=== PATIENT | male | born 1950 | race Hispanic/Latino ===

== ENCOUNTER 2020-01-04 07:37 | Day surgery (SDC) | payer OTHER ==
[2020-01-03 12:16] LABS: EOSINOPHILS % (AUTO) 2.1 % (0.0-8.0); HEMATOCRIT 41.8 % (42-54); LYMPHOCYTES % (AUTO) 35.1 % (21.0-51.0); MEAN CORPUSCULAR HEMOGLOBIN 28.3 pg (27.0-33.0); MEAN CORPUSCULAR VOLUME 85.7 fL (79-99); MONOCYTES % (AUTO) 4.9 % (3.0-13.0); NEUTROPHILS % (AUTO) 56.7 % (40.0-77.0); PLATELET COUNT (AUTO) 167 K/uL (130-400); RED BLOOD CELL COUNT(AUTO) 4.88 MIL/uL (4.50-6.20); RED CELL DISTRIBUTION WIDTH 13.9 % (11.0-15.5); WHITE BLOOD COUNT (AUTO) 4.9 K/uL (4.8-10.8)
[2020-01-03 15:59] VITALS: BP 126/71
[~2020-01-04] VITALS: Ht 175.3 cm; Wt 88.3 kg
[2020-01-04] VITALS (18 sets, daily range): BP systolic 126–155; BP diastolic 67–85
[~2020-01-04 07:37] MED LIST: AEC81 PO; LOVA20TA3 PO; METF-445 PO; TIMO5DRO43 OU
[2020-01-04] MEDS ORDERED: CEFAZOLIN SODIUM 1 GM VIAL IVP ONE (08:00)
[2020-01-04] MEDS ORDERED: SODIUM CHLORIDE 0.9% 1000ML 1,000 ML IV ONE (08:44)
[2020-01-04] MEDS ORDERED: CEFAZOLIN SODIUM 1 GM VIAL ONE (09:12)
[2020-01-04] MEDS ORDERED: ROPIVACAINE 0.5% 5MG/ML 30ML IJ ONE (11:16)
[2020-01-04] MEDS ORDERED: SUCCINYLCHOLINE CHLORIDE 20 MG/ML 10 ML VIAL ONE (11:16)
[2020-01-04] MEDS ORDERED: FENTANYL CITRATE PF 50 MCG/1 ML 2ML VIAL ONE ×2 (11:19→14:37)
[2020-01-04] MEDS ORDERED: ROCURONIUM 10MG/1ML SYR 10 MG/ML ML ONE (11:19)
[2020-01-04] MEDS ORDERED: PROPOFOL 10 MG/ML 20ML VIAL IV ONE (11:19)
[2020-01-04] MEDS ORDERED: LIDOCAINE PF 2% 5ML ABBOJECT ONE (11:19)
[2020-01-04] MEDS ORDERED: EPINEPHRINE 1 MG/ML 30ML VIAL IJ ONE (12:27)
[2020-01-04] MEDS ORDERED: EPHEDRINE SULFATE 50 MG/ML AMPULE ONE (13:06)
[2020-01-04] MEDS ORDERED: HYDRALAZINE HCL 20 MG/ML VIAL ONE (13:48)
[2020-01-04] MEDS ORDERED: GLYCOPYRROLATE 1 MG/5 ML SYRINGE ONE (14:27)
[2020-01-04] MEDS ORDERED: NEOSTIGMINE 5MG/5ML SYR IV ONE (14:27)
[2020-01-04] MEDS ORDERED: KETOROLAC TROMETHAMINE 30MG/ML ONE (14:30)
[2020-01-04] MEDS ORDERED: HYDR-4457 PO (14:36)
[2020-01-04] MEDS ORDERED: NAPR-1023 PO (14:36)
[2020-01-04] MEDS ORDERED: CEPH500B PO (14:36)
[2020-01-04] MEDS ORDERED: MORPHINE SULFATE 2 MG/ML 1ML SYG ONE (15:13)
[2020-01-04] MEDS ORDERED: MEPERIDINE-PF 25 MG/ML SYG ONE (15:28)
--- NOTE | 2020-01-04 16:00 | NUR ---
PATIENT ARRIVED TO DAY PATIENT VIA STRETCHER BY ALYSA MCKNIGHT. PATIENT AAOX3, RESPIRATIONS UNLABORED, VITAL SIGNS STABLE. DRESSING TO RIGHT SHOULDER X3. DRESSINGS DRY/INTACT, NO DRAINAGE NOTED. ARM SLING IN PLACE.
--- NOTE | 2020-01-04 16:20 | NUR ---
PATIENT C/O PAIN TO RIGHT SHOULDER,RATES PAIN AT 3 OUT OF 10. ICE PACK APPLIED TO RIGHT SHOULDER.
--- NOTE | 2020-01-04 16:40 | NUR ---
DISCHARGE INSTRUCTIONS PROVIDED TO PATIENT'S SISTER (PINKY CARBAJAL) VIA TELEPHONE. FOLLOW UP APPOINTMENT PROVIDED AND HANDOUTS PROVIDED. ALL QUESTIONS/CONCERNS ADDRESSED. PRESCRIPTIONS PROVIDED AND INFORMED HER THAT THE PAIN MEDICATION IS READY TO BE PICKED UP AT [facility] ON [facility].
--- NOTE | 2020-01-04 17:25 | NUR ---
PATIENT DISCHARGED FROM FACILITY VIA WHEELCHAIR BY LISY.PATIENT ASSISTED INTO PRIVATE VEHICLE DRIVEN BY FAMILY.
== END 2020-01-04 17:25 | disposition home or self-care (01) ==
LOC: DAH 07:37
PROVIDERS: ATTEND Orthopaedic Surgery
DX: S46.011A Strain of muscle(s) and tendon(s) of the rotator cuff of right shoulder, initial encounter (principal); M25.811 Other specified joint disorders, right shoulder; M75.41 Impingement syndrome of right shoulder; M75.51 Bursitis of right shoulder; E11.9 Type 2 diabetes mellitus without complications; Z96.651 Presence of right artificial knee joint; E78.5 Hyperlipidemia, unspecified; V29.88XA Motorcycle rider (driver) (passenger) injured in other specified transport accidents, initial encounter; Y93.89 Activity, other specified; Y92.89 Other specified places as the place of occurrence of the external cause; Y99.8 Other external cause status
CPT/HCPCS: 29826; 29827; 36415; 82948 ×2; 85025; A4215; A4221; A4222; A4223; A4565; A4649 ×6; A4663; A4930 ×2; A6204; C1713 ×3; G0168; J0171; J0330; J0360; J0690; J1885; J2001; J2175; J2704; J2710; J2795; J3010 ×2; J3490 ×2; J7030 ×2; 96375

== ENCOUNTER 2024-04-13 08:58 | Day surgery (SDC) | payer OTHER ==
[2024-04-13] VITALS (12 sets, daily range): BP systolic 92–125; BP diastolic 54–87; PULSE 52–61; RESP 15–17
[~2024-04-13] VITALS: Ht 170.2 cm; Wt 83.0 kg
[~2024-04-13 08:58] MED LIST changes: +0.9%NACL 1000ML 1,000 ML IV ONE; +CEPH500B PO; +HYDR-4457 PO; +NAPR-1023 PO
[2024-04-13] MEDS ORDERED: METF-527 PO (09:49)
[2024-04-13] MEDS ORDERED: PROPOFOL 10 MG/ML 20ML VIAL IV ONE (10:12)
[2024-04-13] MEDS ORDERED: PANT40TA54 PO (11:32)
== END 2024-04-13 12:05 | disposition home or self-care (01) ==
LOC: DAH 08:58 → SUH 08:58
PROVIDERS: ATTEND Internal Medicine
DX: Z12.11 Encounter for screening for malignant neoplasm of colon (principal); D12.3 Benign neoplasm of transverse colon; K62.1 Rectal polyp; K57.30 Diverticulosis of large intestine without perforation or abscess without bleeding; K44.9 Diaphragmatic hernia without obstruction or gangrene; K25.9 Gastric ulcer, unspecified as acute or chronic, without hemorrhage or perforation; K29.70 Gastritis, unspecified, without bleeding; R14.0 Abdominal distension (gaseous); K59.89 Other specified functional intestinal disorders; E78.5 Hyperlipidemia, unspecified; E11.9 Type 2 diabetes mellitus without complications; Z79.82 Long term (current) use of aspirin; Z79.84 Long term (current) use of oral hypoglycemic drugs; Z79.899 Other long term (current) drug therapy
CPT/HCPCS: 45385; 43239; 82948 ×2; J7030; J2704; A4620; A4215 ×2; A4223; A4222; A4221; A4663; A4606; J3490

== ENCOUNTER 2025-01-31 12:36 | Emergency (ER) | payer OTHER ==
[~2025-01-31] VITALS: Ht 172.7 cm; Wt 83.0 kg
[~2025-01-31 12:36] MED LIST changes: -0.9%NACL 1000ML 1,000 ML IV ONE; +APIX5TAB PO; +CELE-146 PO; -CEPH500B PO; +GLIP10TA16 PO; -HYDR-4457 PO; -METF-445 PO; +METF-527 PO; +MONT-39 PO; -NAPR-1023 PO; +PANT40TA54 PO; +TIMO1DRO9 OP; -TIMO5DRO43 OU
[2025-01-31 12:56] VITALS: BP 140/79; PULSE 64; RESP 20; TEMP 96.9
--- NOTE | 2025-01-31 13:18 | NUR ---
PT LEFT AFTER TRIAGE. LEFT WITH OUT SEEING THE ER PROVIDER. PT CAME UP TO TRIAGE WINDOW AND STATED HE WAS ABLE TO SET UP AN APPOINTMENT WITH PCP TODAY. DID NOT WANT TO WAIT. PT SEEN WALKING OUT ER LOBBY. AMBULATING WITHOUT ASSISTANCE.
== END 2025-01-31 13:54 | disposition left against medical advice (07) ==
LOC: EDH 12:36
DX: M25.561 Pain in right knee (principal); M25.571 Pain in right ankle and joints of right foot; Z53.21 Procedure and treatment not carried out due to patient leaving prior to being seen by health care provider

== ENCOUNTER 2025-03-22 12:52 | Emergency (ER) | payer OTHER ==
[~2025-03-22] VITALS: Ht 172.7 cm; Wt 78.5 kg
--- NOTE | 2025-03-22 13:03 | ERN ---
ED Note History of Present Illness Stated Complaint: RUQ PAIN, RIGHT LEG PAIN Chief Complaint: Abdominal Pain Time Seen by MD: 12:56 Dictation: PATIENT IS A 75-YEAR-OLD MALE COMING IN WITH TWO COMPLAINTS 1ST COMPLAINT IS HE IS HAVING RIGHT LEG PAIN SWELLING TO HIS CALF HE HAS HAD FOR SEVERAL WEEKS. HE HAS ALREADY BEEN SEEN AT [facility] IN THE PAST DIAGNOSED WITH CHRONIC LEG PAIN THERE WAS NO DVT. HE WAS PLACED ON GABAPENTIN AND STATES THAT IS NOT HELPING THE PAIN. SECOND COMPLAINT IS HE IS HAVING RIGHT UPPER QUADRANT AND RIGHT LATERAL CHEST PAIN FOR THE LAST SEVERAL WEEKS ALSO, NO NAUSEA VOMITING NO BACK PAIN NO JAW PAIN NO ARM PAIN. STATES HE HAS BEEN SEEN BY HIS PRIMARY CARE DOCTOR IN [facility] WHO PRESCRIBED HIM TYLENOL NO. 3 HOWEVER SHE CAN NOT FIND WHAT THE ANSWER HIS FOR THE ETIOLOGY OF HIS PAIN. Allergies: Coded Allergies: No Known Drug Allergies (Unverified Allergy, Unknown, 03/11/16) Home Meds Active Scripts Apixaban (Eliquis) 5 Mg Tablet, 5 MG PO BID, #60 TAB 1 Refill Take Eliquis5 mg p.o. b.i.d. on the 2nd week after completing Eliquis 10 mg p.o. b.i.d. for seven days Prov:ELA TOVAR [facility] 01/28/25 Apixaban (Eliquis) 5 Mg Tablet, 2 TAB PO BID for 7 Days, #14 TAB 0 Refills Prov:ELA TOVAR [facility] 01/28/25 Reported Medications Timolol Maleate/Pf (Timolol Maleate 0.5% Eye Drop) 0.5 % Droperette, 1 EACH OP BID, DROP 01/26/25 Montelukast Sodium (Montelukast Sodium) 10 Mg Tablet, 1 TAB PO DAILY for 30 Days, #30 TAB 0 Refills 01/26/25 Glipizide (Glipizide) 10 Mg Tablet, 10 MG PO DAILYDINNER, TAB 01/26/25 Celecoxib (Celecoxib) 100 Mg Capsule, 100 MG PO DAILYDINNER, CAP 01/26/25 Pantoprazole Sodium (Pantoprazole Sodium) 40 Mg Tablet.dr, 40 MG PO AM, TAB 04/13/24 Metformin HCl (Metformin HCl ER) 1,000 Mg Tab.er.24, 1000 MG PO AM 04/13/24 Aspirin (ASPIRIN 81 MG ECTAB) 81 Mg Ectab, 81 MG PO DAILY, TAB.EC 01/03/20 Lovastatin (Lovastatin) 20 Mg Tablet, 20 MG PO DAILY, TAB 03/11/16 Past Medical History Past Medical History: Diabetes-Type II, DVT Surgical History: Other Surgical History Other: RIGHT ANKLE, KNEE REPLACEMENT RN Note Reviewed/Agreed w/PFSH: Yes Review of System Dictation CONSTITUTIONAL: NEGATIVE EXCEPT FOR HPI HEAD/FACE: NEGATIVE EXCEPT FOR HPI EENT: NEGATIVE EXCEPT FOR HPI RESPIRATORY: NEGATIVE EXCEPT FOR HPI RIGHT LATERAL CHEST PAIN GASTROINTESTINAL/ABDOMINAL: NEGATIVE EXCEPT FOR HPI RIGHT UPPER QUADRANT PAIN GENITOURINARY: NEGATIVE EXCEPT FOR HPI MUSCULOSKELETAL: NEGATIVE EXCEPT FOR HPI RIGHT LEG PAIN FROM KNEE DOWN WITH CALF SWELLING INTEGUMENTARY: NEGATIVE EXCEPT FOR HPI NEUROLOGICAL/PSYCH: NEGATIVE EXCEPT FOR HPI HEMATOLOGIC/LYMPHATIC: NEGATIVE EXCEPT FOR HPI ALL SYSTEMS NEGATIVE, EXCEPT NOTED ABOVE. 13 POINT REVIEW OF SYSTEMS ASSESSED AND ALL NEGATIVE EXCEPT FOR ABOVE. Initial Vital Sign VS Vital Signs Date Time Temp Pulse Resp B/P (MAP) Pulse Ox O2 Delivery O2 Flow Rate FiO2 03/22/25 12:55 98.8 87 16 134/65 97 Room Air Physical Exam Dictation VITAL SIGNS REVIEWED GENERAL APPEARANCE: ALERT, ORIENTED X 3, MODERATE ACUTE DISTRESS, WELL DEVELOPED, NOURISHED. HEAD AND FACE: NON-TRAUMATIC. EYES: PERRL, PINK CONJUNCTIVAS, EYELID NO TRAUMA, ANTERIOR CHAMBER WITH ARCUS SENILIS. EARS: PINNAS INTACT AND NO SIGNS OF TRAUMA OR ERYTHEMA EAR CANALS CLEAR AND NO DISCHARGE TM NO ERYTHEMA NOSE: NO DISCHARGE, NO BLEEDING. OROPHARYNX: MOUTH NORMAL, TONGUE PINK, PHARYNX CLEAR,NO ERYTHEMA, TONSILS NO EXUDATES, NO ABSCESSES NOTED, MUCOUS MEMBRANE MOIST NECK: SUPPLE, NON-TENDER, NO THYROMEGALY, NO MASSES, NO JVD, NO BRUITS BREAST:DEFERRED CHEST:NO TENDERNESS, NO CREPITUS, NO PARADOXICAL MOVEMENT, NO RETRACTIONS LUNGS:CLEAR, WELL-VENTILATED, SYMMETRIC, NO RALES, NO WHEEZING, NO RHONCHI, NO STRIDOR, GOOD BREATH SOUNDS BILATERALLY BILATERAL BREATH SOUNDS CLEAR HEART: REGULAR RATE, REGULAR RHYTHM, NO MURMUR, NO GALLOPS VASCULAR: NO PERIPHERAL EDEMA, ABDOMEN: SOFT, POSITIVE BOWEL SOUNDS, NONDISTENDED, NO GUARDING, NONTENDER, NO REBOUND, NO MASSES NO HEPATOMEGALY, NO SPLENOMEGALY, NO LAM'S SIGN, NO HERNIAS. RECTAL: DEFERRED GENITAL: DEFERRED NEUROLOGICAL: NORMAL SPEECH, MOTOR FUNCTION INTACT, SENSORY FUNCTION INTACT MUSCULOSKELETAL: NECK NONTENDER, FULL RANGE OF MOTION, BACK NONTENDER, FULL RANGE OF MOTION, EXTREMITIES: , FULL RANGE OF MOTION MILD RIGHT CALF SWELLING TENDERNESS WELL GRANULATED INCISION FROM PRIOR TKR IN PLACE. NO SHORTENING OR ROTATION NO ERYTHEMA. SKIN: COLOR PINK, DRY, NO TURGOR, NO RASH, NO LACERATIONS, NO ABRASIONS, NO CONTUSIONS. LYMPHATIC: DEFERRED Results (Laboratory/Radiology) Laboratory/Radiology Laboratory Tests Test 03/22/25 13:35 White Blood Count 4.9 K/uL (4.8-10.8) Red Blood Count 4.64 MIL/uL (4.50-6.20) Hemoglobin 13.5 g/dL (14.0-18.0) L Hematocrit 39.3 % (42-54) L Mean Corpuscular Volume 84.7 fL (79-99) Mean Corpuscular Hemoglobin 29.1 pg (27.0-33.0) Mean Corpuscular Hemoglobin Concent 34.4 g/dL (32.0-36.0) Red Cell Distribution Width 14.8 % (11.0-15.5) Platelet Count 163 K/uL (130-400) Mean Platelet Volume 8.5 fL (7.5-10.5) Immature Granulocyte % (Auto) 0.2 % (0-1) Neutrophils (%) (Auto) 68.5 % (40.0-77.0) Lymphocytes (%) (Auto) 24.3 % (21.0-51.0) Monocytes (%) (Auto) 5.4 % (3.0-13.0) Eosinophils (%) (Auto) 1.2 % (0.0-8.0) Basophils (%) (Auto) 0.4 % (0.0-5.0) Neutrophils # (Auto) 3.3 K/uL (1.8-7.7) Lymphocytes # (Auto) 1.2 K/uL (1.0-4.8) Monocytes # (Auto) 0.3 K/uL (0.1-1.0) Eosinophils # (Auto) 0.06 K/uL (0.00-0.70) Basophils # (Auto) 0.02 K/uL (0.00-0.20) Absolute Immature Granulocyte (auto 0.01 K/uL (0-1) Nucleated Red Blood Cells 0.0 % (0.0-0.19) Troponin I High Sensitivity 6 ng/L (4-75) Lipase 44 U/L (16-77) EXAM: CR Chest, 1 View. CLINICAL HISTORY: SHORTNESS A BREATH/CHEST PAIN COMPARISON: Radiograph dated March 17, 2025 FINDINGS: Small to moderate left and moderate to large right bilateral effusions. Dependent airspace disease within the mid to lower right lung, and at the left lung base may reflect atelectasis and/or an infectious/inflammatory process. Heart size is stable. Mild central pulmonary vascular congestion. IMPRESSION: 1. Bilateral pleural effusions, moderate to large on the right and small to moderate on the left 2. Right middle and lower lung and left basilar airspace disease, may reflect atelectasis and/or pneumonia 3. Mild pulmonary vascular congestion /[place] Right leg demonstrates DVT to pop to her vein. Unchanged from his last ER visit patient on Eliquis. Right upper upper quadrant sonogram demonstrates no gallbladder disease Labs Reviewed?: Yes EKG Comment: EKG NORMAL SINUS RHYTHM/HEART RATE 82/AXIS NORMAL/NO ECTOPY ED Course ED Course Orders Procedure Category Date Status Time Us Venous Doppler US 03/22/25 Resulted Unilateral 12:59 Cbc With Differential LAB 03/22/25 Complete 12:59 Troponin I High LAB 03/22/25 Complete Sensitivity 12:59 Urinalysis Profile LAB 03/22/25 Logged 12:59 Us Abdominal Ruq\Ltd US 03/22/25 Resulted 12:59 12 Lead Ekg Tracing- EKG 03/22/25 Logged Technical 12:59 Morphine 2mg Syg PHA 03/22/25 Complete (Morphine 2mg Syg) 13:00 Ondansetron 4mg Inj PHA 03/22/25 Complete (Zofran 4mg Inj) 13:00 Chest 1vw RAD 03/22/25 Resulted 12:59 Lipase LAB 03/22/25 Complete 12:59 Basic Metabolic Panel LAB 03/22/25 In Process 14:37 Morphine 4mg Syg PHA 03/22/25 Transmitted (Morphine 4mg Syg) 15:00 Current Medications Medications (Trade) Dose Ordered Sig/Chris Route PRN Reason Start Time Stop Time Status Last Admin Dose Admin Morphine Sulfate (morPHINE 2MG SYG) 2 mg ONCE ONCE IVP 03/22/25 13:00 03/22/25 13:02 DC 03/22/25 13:42 Ondansetron HCl (zoFRAN 4MG INJ) 4 mg ONCE ONCE IVP 03/22/25 13:00 03/22/25 13:02 DC 03/22/25 13:40 Vital Signs Date Time Temp Pulse Resp B/P (MAP) Pulse Ox O2 Delivery O2 Flow Rate FiO2 03/22/25 12:55 98.8 87 16 134/65 97 Room Air 1500/patient will be discharged home with diabetic neuropathy lower extremities he will be given Tylenol No. 3 told to continue gabapentin Follow up with his primary care doctor.1500/ HEART Score Response (Comments) Value EKG: Normal 0 Age: > 65yrs (+2) 2 Risk Factors: 1-2 risk factors (+1) 1 Initial Troponin: Normal limit (0) 0 Total 3 Medical Decision Making MDM MDM: Differential diagnosis: Cholelithiasis/pancreatitis/pulmonary lesion/pneum onia/bronchitis/PE/DVT/diabetic neuropathy/uncontrolled diabetes Rationale: Tests considered and ordered secondary to shared decision making include: EKG/labs/radiology Previous outside records reviewed: Old ER visits. Risk of complication and/or morbidity or mortality of patient management: None Medications-Per medication reconciliation Need for hospitalization: Patient does not meet criteria for hospitalization. No Need for emergency major/minor surgery: No There are no social concerns with this patient. Prescription drug management Tylenol No. 3 Prescriptions will include symptomatic care Patient's prior external medical records from other ER visits were reviewed by me as indicated. Prior testing and results from previous visits were reviewed. Prior tests were taken into account with medical decision making and resource utilization, independent historian/historians were used to obtain complete medical history. I independently interpreted the test that were performed, results were reviewed by me and considered findings on radiology if ordered. Medical management and examination interpretation discussions were had by me with other qualified healthcare professionals as indicated for the patient's care. DX & DISP Disposition: Discharge Departure Impression: Primary Impression: Right leg DVT Additional Impressions: Uncontrolled diabetes mellitus with hyperglycemia, Diabetic neuropathy Condition: Stable Scripts Acetaminophen with Codeine (Acetaminophen-Cod #3 Tablet) 300 Mg-30 Mg Tablet 1 TAB PO Q4H PRN for Moderate to severe pain, #20 TAB 0 Refills Prov: HUONG SHEIKH NP 03/22/25 Additional Instructions: Follow-up with primary care provider in 1 to 2 days. Take medications as directed here in the emergency room. Okay to continue home medications unless otherwise discussed during your visit in the emergency room today. Return to your nearest emergency room if symptoms worsen or if there is no improvement. Call 911 if you need immediate assistance. Take Tylenol or Motrin [id number] as needed and if no contraindications are present. Increase oral hydration. A wound culture or urine culture was ordered here in the emergency room department please follow-up with primary care provider and advise them to get repeat ports from our facility. If you had any Carlos wrap/splints that were applied here, please do not remove them until you see your primary care or specialty. Continue gabapentin from your primary care doctor. Take Tylenol with codeine as needed for severe pain. Follow up with the your doctor for referral to Neurology for diabetic neuropathic pain. Referrals: HUAN GOMEZ (PCP) Time of Disposition: 15:02 I have reviewed the case, and I agree with, Diagnosis and Plan HUONG SHEIKH NP Mar 22, 2025 13:03
--- NOTE | 2025-03-22 13:31 | HMCIMG ---
EXAM: CR Chest, 1 View. CLINICAL HISTORY: RIGHT LATERAL CHEST PAIN COMPARISON: Radiograph dated June 21, 2015 FINDINGS: LUNGS: The lungs show no infiltrate or other acute finding. PLEURAL SPACES: No pleural effusion or pneumothorax. MEDIASTINUM: Cardiac size and mediastinal contours within normal limits. BONES: No aggressive appearing osseous lesion seen. IMPRESSION: No acute cardiopulmonary pathology is evident. /[place]
[2025-03-22 13:42] LABS: IMMATURE GRANULOCYTE ABSOLUTE 0.01 K/uL (0-1); NUCLEATED RED BLOOD CELLS 0.0 % (0.0-0.19); PLATELET COUNT (AUTO) 163 K/uL (130-400); RED BLOOD CELL COUNT(AUTO) 4.64 MIL/uL (4.50-6.20); RED CELL DISTRIBUTION WIDTH 14.8 % (11.0-15.5); WHITE BLOOD COUNT (AUTO) 4.9 K/uL (4.8-10.8)
--- NOTE | 2025-03-22 14:52 | HMCIMG ---
EXAM: US Abdomen, Right Upper Quadrant. CLINICAL HISTORY: Adominal Pain TECHNIQUE: Right upper quadrant sonography performed with image documentation. COMPARISON: None provided. FINDINGS: LIVER: Hepatomegaly; the right hepatic lobe measures up to 18.0 cm in craniocaudal dimension. Increased echogenicity of the hepatic parenchyma reflects hepatic steatosis. GALLBLADDER: The gallbladder appears normal. No gallbladder wall thickening seen. No gallstones are evident. COMMON BILE DUCT: Within normal limits in size. PANCREAS: The pancreas is obscured by overlying bowel gas. RIGHT KIDNEY: Unremarkable. Normal renal contours. No renal mass or calculus. No hydronephrosis. IMPRESSION: 1. Hepatomegaly with hepatic steatosis. /[place]
--- NOTE | 2025-03-22 14:54 | HMCIMG ---
EXAM: US for Deep Venous Thrombosis, right Lower Extremity. CLINICAL HISTORY: Leg Pain and Swelling TECHNIQUE: Real-time ultrasound scan of the veins of the right lower extremity with color Doppler flow, spectral waveform analysis and compression. COMPARISON: Prior ultrasound images dated January 26, 2025 FINDINGS: Partial occlusive thrombus within the right popliteal vein. Remaining right lower extremity veins are patent and compressible. IMPRESSION: 1. Partial occlusive thrombus in the right popliteal vein, unchanged from the prior examination. /[place]
[2025-03-22 14:57] VITALS: BP 137/72; PULSE 82; RESP 18; TEMP 98.3; O2SAT 99
[2025-03-22 15:02] LABS: CREATININE 1.0 mg/dL (0.5-1.3); GLOMERULAR FILTR. RATE CALC 79.0 mL/min (>90); GLUCOSE,RANDOM 188.0 mg/dL (70-105); SODIUM SERUM 142.0 mmol/L (136-145); UREA NITROGEN, BLOOD 21.0 mg/dL (7-18)
[2025-03-22] MEDS ORDERED: ACET-2079 PO (15:02)
--- NOTE | 2025-03-22 15:03 | EKG ---
[facility] Test Date: 2025-03-22 Test Time: 13:05:49 Pat Name: HERMES DENSON Department: [facility] Room: Gender: Clinical Trial Associate: [id number] : 1950 Requested By: HUONG SHEIKH Order Number: [id number] Reading MD: Jus Cho Measurements Intervals [place] Rate: 82 P: 50 ID: [id number] QRS: 43 QRSD: 91 T: 52 QT: 358 QTc: 418 Interpretive Statements Sinus rhythm Compared to ECG 03/11/2016 17:11:38 No significant changes Electronically Signed On 03-22-2025 23:45:12 CDT by Jus Cho Please click the below link to view image of tracing.
== END 2025-03-22 15:41 | disposition home or self-care (01) ==
LOC: EDH 12:52
DX: I82.401 Acute embolism and thrombosis of unspecified deep veins of right lower extremity (principal); E11.65 Type 2 diabetes mellitus with hyperglycemia; E11.40 Type 2 diabetes mellitus with diabetic neuropathy, unspecified; M79.661 Pain in right lower leg; Z79.01 Long term (current) use of anticoagulants; Z79.82 Long term (current) use of aspirin; Z79.899 Other long term (current) drug therapy; Z86.718 Personal history of other venous thrombosis and embolism; Z96.659 Presence of unspecified artificial knee joint
CPT/HCPCS: 99285; 96374; 76705; 93971; 71045; 96375; 84484; 80048; 83690; 85025; 36415; 96376; 93005; J2270 ×2; J2405

== ENCOUNTER → 2025-07-05 | Outpatient (CLI) | payer OTHER ==
[~2025-07-05] MED LIST changes: +ACET-2079 PO
--- NOTE | 2025-07-05 22:47 | HMCIMG ---
EXAM: CR LEFT HUMERUS, 2 VIEW CLINICAL HISTORY: Pain in left arm. COMPARISON: None provided. FINDINGS: BONES: No acute fracture or destructive osseous lesion identified. Prominent deltoid tuberosity noted. Contour irregularities along the greater tuberosity of the humerus, likely representing sequelae of chronic rotator cuff tendinosis. JOINTS: Mild acromioclavicular degenerative arthritic changes with marginal osteophyte formation and joint space narrowing. Glenohumeral alignment maintained. No dislocation. SOFT TISSUES: Soft tissues appear unremarkable. No calcific tendinitis or abnormal soft tissue swelling. IMPRESSION: * Mild acromioclavicular joint degenerative arthritis. * Greater tuberosity contour irregularities, likely related to chronic rotator cuff tendinosis. * Prominent deltoid tuberosity (anatomic variant). * No acute fracture or dislocation. /[place]
--- NOTE | 2025-07-05 22:48 | HMCIMG ---
EXAM: CR Left Shoulder, 2 View. CLINICAL HISTORY: Shoulder impingement. TECHNIQUE: Standard anteroposterior and lateral radiographs of the left shoulder. COMPARISON: No prior available for comparison. FINDINGS: BONES: No acute fracture or aggressive osseous lesion. Cortical irregularity noted along the greater tuberosity suggestive of chronic rotator cuff tendinosis. JOINTS: Mild to moderate degenerative osteoarthritis involving the glenohumeral and acromioclavicular joints with marginal osteophyte formation and mild joint space narrowing. No dislocation. SOFT TISSUES: Soft tissues appear unremarkable. No calcific tendinitis or soft tissue swelling. IMPRESSION: * Mild to moderate degenerative osteoarthritis of the glenohumeral and acromioclavicular joints. * Radiographic evidence of rotator cuff tendinosis with cortical irregularity of the greater tuberosity. * No acute fracture or dislocation. /[place]
== END | disposition home or self-care (01) ==
LOC: RAH 15:27
PROVIDERS: ATTEND Internal Medicine
DX: M19.012 Primary osteoarthritis, left shoulder (principal); M75.42 Impingement syndrome of left shoulder; M25.712 Osteophyte, left shoulder; M67.814 Other specified disorders of tendon, left shoulder; M25.812 Other specified joint disorders, left shoulder; M79.602 Pain in left arm
CPT/HCPCS: 73030; 73060

== ENCOUNTER 2025-08-27 14:08 | Emergency (ER) | payer OTHER ==
[~2025-08-27] VITALS: Ht 170.2 cm; Wt 83.0 kg
[2025-08-27 14:11] VITALS: BP 150/74; PULSE 76; RESP 18; TEMP 98.8
--- NOTE | 2025-08-27 15:34 | HMCIMG ---
EXAM CR right knee, 3 views CLINICAL HISTORY Fall TECHNIQUE Three-view radiographic examination of the right knee COMPARISON None provided FINDINGS Bones No acute fracture, dislocation, or aggressive osseous lesion is identified. Joints There is moderate osteoarthritic change of the right knee with joint space narrowing, marginal osteophyte formation, and subchondral sclerosis, most pronounced in the weightbearing compartments. A moderate knee joint effusion is present. Soft tissues The periarticular soft tissues are otherwise unremarkable without soft tissue gas or focal mass. IMPRESSION * Moderate osteoarthritis of the right knee with associated joint effusion. * No acute fracture or dislocation. /[place]
--- NOTE | 2025-08-27 16:17 | ERN ---
ED Note History of Present Illness Stated Complaint: KNEE PAIN Chief Complaint: Knee Injury/Swelling Time Seen by MD: 14:13 Time Seen by Midlevel: 14:13 Dictation: The patient is a 75-year-old male with a history of diabetes, DVT on Eliquis who presents to the emergency department with complaints of left knee pain. Patient reports that on Thursday his knee gave up on him in causing him to land on his left knee. Patient denies any head trauma or any other injury from the fall. Denies any fevers. Allergies: Coded Allergies: No Known Drug Allergies (Unverified Allergy, Unknown, 03/11/16) Home Meds Active Scripts Acetaminophen with Codeine (Acetaminophen-Cod #3 Tablet) 300 Mg-30 Mg Tablet, 1 TAB PO Q4H PRN for Moderate to severe pain, #20 TAB 0 Refills Prov:[employer] 03/22/25 Apixaban (Eliquis) 5 Mg Tablet, 5 MG PO BID, #60 TAB 1 Refill Take Eliquis5 mg p.o. b.i.d. on the 2nd week after completing Eliquis 10 mg p.o. b.i.d. for seven days Prov:[facility] 01/28/25 Apixaban (Eliquis) 5 Mg Tablet, 2 TAB PO BID for 7 Days, #14 TAB 0 Refills Prov:[facility] 01/28/25 Reported Medications Timolol Maleate/Pf (Timolol Maleate 0.5% Eye Drop) 0.5 % Droperette, 1 EACH OP BID, DROP 01/26/25 Montelukast Sodium (Montelukast Sodium) 10 Mg Tablet, 1 TAB PO DAILY for 30 Days, #30 TAB 0 Refills 01/26/25 Glipizide (Glipizide) 10 Mg Tablet, 10 MG PO DAILYDINNER, TAB 01/26/25 Celecoxib (Celecoxib) 100 Mg Capsule, 100 MG PO DAILYDINNER, CAP 01/26/25 Pantoprazole Sodium (Pantoprazole Sodium) 40 Mg Tablet.dr, 40 MG PO AM, TAB 04/13/24 Metformin HCl (Metformin HCl ER) 1,000 Mg Tab.er.24, 1000 MG PO AM 04/13/24 Aspirin (ASPIRIN 81 MG ECTAB) 81 Mg Ectab, 81 MG PO DAILY, TAB.EC 01/03/20 Lovastatin (Lovastatin) 20 Mg Tablet, 20 MG PO DAILY, TAB 03/11/16 Past Medical History Past Medical History: Arthritis, Diabetes-Type II Surgical History: Other Surgical History Other: RT KNEE REPLACEMENT, RT SHOULDER SX RN Note Reviewed/Agreed w/PFSH: Yes Review of System Dictation Constitutional: Negative for fever,chills, and weight loss Eyes: Negative for injury, pain,redness, and discharge ENT: Negative for injury,pain or swelling Cardiovascular: Negative for chest pain, palpitations, and edema Respiratory: Negative for shortness of breath, cough, and wheezing, Abdomen/GI: Negative for abdominal pain, nausea, vomiting, diarrhea, and constipation Back: Negative for injury and pain : Negative for injury, bleeding and discharge MS/Extremity: Positive for left knee injury Skin: Negative for rash, and discoloration Neuro: Negative for headache, weakness, numbness, tingling, and seizure Psych: Negative for suicide ideation, homicidal ideation, and hallucinations Initial Vital Sign VS Vital Signs Date Time Temp Pulse Resp B/P (MAP) Pulse Ox O2 Delivery O2 Flow Rate FiO2 08/27/25 14:11 98.8 76 18 150/74 97 Nasal Cannula 0 Physical Exam Dictation Vital Signs reviewed General Appearance: Alert, oriented x 3, no acute distress, well developed, nourished. Head and Face: non-traumatic. Eyes: PERRL, pink conjunctivas, eyelid no trauma, anterior chamber with arcus senilis. Ears: Pinnas intact and no signs of trauma or erythema ear canals clear and no discharge TM no erythema Nose: No discharge, no bleeding. Oropharynx: Mouth normal, tongue pink. pharynx clear,no erythema, tonsils no exudates, no abscesses noted, mucous membrane moist Neck: Supple, non-tender, no thyromegaly, no masses, no JVD, no bruits Breast:Deferred Chest:No tenderness, no crepitus, no paradoxical movement, no retractions Lungs:Clear, well-ventilated, symmetric, no rales, no wheezing, no rhonchi, no stridor, good breath sounds bilaterally Heart: Regular rate, regular rhythm, no murmur, no gallops Vascular: no peripheral edema, dorsalis pedis 3+ bilaterally Abdomen: Soft, positive bowel sounds, nondistended, no guarding, nontender, no rebound, no masses no hepatomegaly, no splenomegaly, no Fontenot's sign, no hernias. Rectal: Deferred Genital: Deferred Neurological: Normal speech, motor function intact, sensory function intact Musculoskeletal: Neck nontender, full range of motion, back nontender, full range of motion, Extremities: nontender, full range of motion , mild swelling to left knee, mild tenderness Skin: Color pink, dry, no turgor, no rash, no lacerations, no abrasions, no contusions. Lymphatic: Deferred Results (Laboratory/Radiology) Labs Reviewed?: Yes ED Course ED Course Orders Procedure Category Date Status Time Knee 3vws Lt RAD 08/27/25 Resulted 14:30 Acetaminophen 500mg PHA 08/27/25 Complete Tab (Tylenol 500mg T 14:30 Current Medications Medications (Trade) Dose Ordered Sig/Chris Route PRN Reason Start Time Stop Time Status Last Admin Dose Admin Acetaminophen (TYLenol 500MG TAB) 1,000 mg ONCE ONCE PO 08/27/25 14:30 08/27/25 14:39 DC Vital Signs Date Time Temp Pulse Resp B/P (MAP) Pulse Ox O2 Delivery O2 Flow Rate FiO2 08/27/25 14:11 98.8 76 18 150/74 97 Nasal Cannula 0 Medical Decision Making MDM The patient is a 75-year-old male with a history of diabetes, DVT on Eliquis who presents to the emergency department with complaints of left knee pain. Patient reports that on Thursday his knee gave up on him in causing him to land on his left knee. Patient denies any head trauma or any other injury from the fall. Denies any fevers. Chest x-ray showed no fractures it showed any effusion to the knee and osteoar thritis. Patient otherwise neurovascularly intact. Patient is ambulatory. No erythema noted to the knee. On physical exam patient is in no acute distress, we will discharge patient to follow up with ortho. Patient agrees with discharge planning Differential diagnosis: Knee dislocation, knee contusion, knee sprain, knee effusion Need for hospitalization: Patient does not meet criteria for hospitalization. There are no social concerns with this patient. DX & DISP Disposition: Discharge Departure Impression: Primary Impression: Osteoarthritis of left knee Additional Impressions: Contusion of left knee, Effusion of left knee Condition: Stable Additional Instructions: Please follow up with your primary doctor in 1-2 days. Follow up with ortho. If anything worsens please , you develop fevers or severe pain please return to ER. You can continue taking your pain medication prescribed by your primary doctor. FOLLOW-UP WITH PRIMARY CARE PROVIDER IN 1 TO 2 DAYS. TAKE MEDICATIONS DIRECTED HERE IN THE EMERGENCY ROOM. OKAY TO CONTINUE HOME MEDICATIONS UNLESS OTHERWISE DISCUSSED DURING YOUR VISIT IN THE EMERGENCY ROOM TODAY. RETURN TO YOUR NEAREST EMERGENCY ROOM IF SYMPTOMS WORSEN OR IF THERE IS NO IMPROVEMENT. CALL 911 IF YOU NEED IMMEDIATE ASSISTANCE. TAKE TYLENOL [id number] NEEDED AND IF NO CONTRAINDICATIONS ARE PRESENT. INCREASE ORAL HYDRATION. A WOUND CULTURE OR URINE CULTURE WAS ORDERED HERE IN THE EMERGENCY ROOM DEPARTMENT PLEASE FOLLOW-UP WITH PRIMARY CARE PROVIDER AND ADVISE THEM TO GET REPEAT PORTS FROM OUR FACILITY. IF YOU HAD ANY LYNN WRAP/SPLINTS THAT WERE APPLIED HERE, PLEASE DO NOT REMOVE THEM UNTIL YOU SEE YOUR PRIMARY CARE OR SPECIALTY. Referrals: RAMU PITTS MD (PCP) GERARD TAN MD Time of Disposition: 16:17 I have reviewed the case, and I agree with, Diagnosis and Plan CAS[facility]O KYLE [facility] Aug 27, 2025 16:17
--- NOTE | 2025-08-27 17:15 | NUR ---
LARGE LYNN WRAP APPLIED TO LT KNEE, PT TOLERATED WELL.
== END 2025-08-27 17:19 | disposition home or self-care (01) ==
LOC: EDH 14:08
DX: S80.02XA Contusion of left knee, initial encounter (principal); M17.12 Unilateral primary osteoarthritis, left knee; E11.9 Type 2 diabetes mellitus without complications; Z79.01 Long term (current) use of anticoagulants; Z79.82 Long term (current) use of aspirin; Z79.899 Other long term (current) drug therapy; Z96.651 Presence of right artificial knee joint; Z86.718 Personal history of other venous thrombosis and embolism; Z79.84 Long term (current) use of oral hypoglycemic drugs; W18.39XA Other fall on same level, initial encounter; Y93.89 Activity, other specified; Y92.89 Other specified places as the place of occurrence of the external cause; Y99.8 Other external cause status
CPT/HCPCS: 99283; 73562; 96372; J1885